=== PATIENT | female | born 1965 | race Two or more races ===

== ENCOUNTER 2017-09-29 08:38 | Emergency (ER) | payer OTHER ==
[~2017-09-29] VITALS: Ht 165.1 cm; Wt 68.0 kg
[2017-09-29 11:10] VITALS: BP 128/84
== END 2017-09-29 11:33 | disposition left against medical advice (07) ==
LOC: ER 08:47
DX: M25.562 Pain in left knee (principal); M25.511 Pain in right shoulder; Z53.21 Procedure and treatment not carried out due to patient leaving prior to being seen by health care provider; W01.0XXA Fall on same level from slipping, tripping and stumbling without subsequent striking against object, initial encounter; Y93.89 Activity, other specified; Y92.89 Other specified places as the place of occurrence of the external cause; Y99.8 Other external cause status
CPT/HCPCS: 73030; 73562